=== PATIENT | male | born 1990 | race African-American/Black ===

== ENCOUNTER 2018-05-10 21:56 | Emergency (ER) | payer SELFPAY ==
[2018-05-10] MEDS ORDERED: Sodium Chloride 0.9% 1,000 ML IV ONE (22:37)
[2018-05-10] MEDS ORDERED: Ketorolac 30 MG/ML SDV IVPUSH ONE (22:37)
[2018-05-10 23:16] LABS: CHLORIDE,CL 103 mmol/L (98-107); SODIUM,NA 137 mmol/L (136-148)
--- NOTE | 2018-05-10 23:34 | EDM.PDOC ---
ED HPI GENERAL MEDICAL PROBLEM - General Chief Complaint: General Stated Complaint: PT HAS BODY PAINS Time Seen by Provider: 05/10/18 22:03 Source of Information: Reports: Patient History Limitations: Reports: No Limitations - History of Present Illness INITIAL COMMENTS - FREE TEXT/NARRATIVE: HISTORY AND PHYSICAL: History of present illness: 27-year-old male presenting to emergency department with chief complaint of generalized body aches 2 weeks. Patient states for the last 2 weeks he has had intermittent episodes of generalized body aches more specifically in his joints. States that this has happened before. Does admit to family history of rheumatologic disease. Denies any associated fever, chills, nausea, vomiting, diarrhea, abdominal pain, or other signs of systemic infection. Currently pain is 8 out of 10 and generalized in his joints. Patient is otherwise healthy and takes no other medications on a daily basis. Currently denies any chest pain, palpitations, shortness of breath, syncopal episodes, focal neurologic deficits. Exam completely benign Review of systems: As per history of present illness and below otherwise all systems reviewed and negative. Past medical history: As per history of present illness and as reviewed below otherwise noncontributory. Surgical history: As per history of present illness and as reviewed below otherwise noncontributory. Social history: No reported history of drug or alcohol abuse. Family history: As per history of present illness and as reviewed below otherwise noncontributory. Physical exam: HEENT: Atraumatic, normocephalic, pupils reactive, negative for conjunctival pallor or scleral icterus, mucous membranes moist, throat clear, neck supple, nontender, trachea midline. Lungs: Clear to auscultation, breath sounds equal bilaterally, chest nontender. Heart: S1S2, regular, negative for clicks, rubs, or JVD. Abdomen: Soft, nondistended, nontender. Negative for masses or hepatosplenomegaly. Negative for costovertebral tenderness. Pelvis: Stable nontender. Genitourinary: Deferred. Rectal: Deferred. Extremities: Atraumatic, negative for cords or calf pain. Neurovascular unremarkable. Neuro: Awake, alert, oriented. Cranial nerves II through XII unremarkable. Cerebellum unremarkable. Motor and sensory unremarkable throughout. Exam nonfocal. Diagnostics: CBC, CMP Therapeutics: 1 L normal saline, Toradol 30 mg IV 1, diclofenac 35 mg by mouth 3 times a day #12 Impression: Generalized joint pain Possible rheumatologic disease Plan: Given patient's family history a thorough rheumatologic workup should be done at some point. I did discuss this with the patient at length. Advised him to follow-up with a primary care provider and gave him information on this. I did give him a prescription for diclofenac 35 mg by mouth 3 times a day when necessary pain. Instructed him to return to emergency department if any new or worsened symptoms. Definitive disposition and diagnosis as appropriate pending reevaluation and review of above. generalized Pain Score (Numeric/FACES): 7 - Related Data Allergies Allergy/AdvReac Type Severity Reaction Status Date / Time shellfish derived Allergy Swelling Verified 05/10/18 22:16 Home Meds: Home Meds . [No Known Home Meds] 01/14/16 [History] Past Medical History - Past Health History Medical/Surgical History: Denies Medical/Surgical History HEENT History: Reports: None Cardiovascular History: Reports: None Respiratory History: Reports: None Gastrointestinal History: Reports: None Genitourinary History: Reports: None Musculoskeletal History: Reports: None Neurological History: Reports: None Psychiatric History: Reports: Anxiety Endocrine/Metabolic History: Reports: None Hematologic History: Reports: None Immunologic History: Reports: None Oncologic (Cancer) History: Reports: None Dermatologic History: Reports: None - Infectious Disease History Infectious Disease History: Reports: None - Past Surgical History Head Surgeries/Procedures: Reports: None Social & Family History - Family History Family Medical History: Noncontributory - Tobacco Use Smoking Status *Q: Never Smoker - Caffeine Use Caffeine Use: Reports: Soda - Recreational Drug Use Recreational Drug Use: Yes Drug Use in Last 12 Months: Yes ED ROS GENERAL - Review of Systems Review Of Systems: ROS reveals no pertinent complaints other than HPI. ED EXAM, GENERAL - Physical Exam Exam: See Below Course - Vital Signs Last Recorded V/S: Last Vital Signs Temp 98.1 F 05/10/18 22:16 Pulse 69 05/10/18 22:16 Resp 18 05/10/18 22:16 BP 133/87 05/10/18 22:16 Pulse Ox 98 05/10/18 22:16 - Orders/Labs/Meds Orders: Active Orders 24 hr Category Date Time Status CULTURE URINE [RM] Stat Lab 05/10/18 23:18 Received Labs: Laboratory Tests 05/10/18 05/10/1805/10/18 Range/Units 22:50 22:50 23:18 WBC 5.72 (4.0-11.0) K/uL RBC 5.30 (4.50-5.90) M/uL Hgb 15.1 (13.0-17.0) g/dL Hct 42.4 (38.0-50.0) % MCV 80.0 (80.0-98.0) fL MCH 28.5 (27.0-32.0) pg MCHC 35.6 (31.0-37.0) g/dL RDW Std Deviation 35.8 (28.0-62.0) fl RDW Coeff of Von 12 (11.0-15.0) % Plt Count 185 (150-400) K/uL MPV 8.60 (7.40-12.00) fL Neut % (Auto) 49.1 (48.0-80.0) % Lymph % (Auto) 39.2 (16.0-40.0) % [place] % (Auto) 8.4 (0.0-15.0) % Eos % (Auto) 3.1 (0.0-7.0) % Baso % (Auto) 0.2 (0.0-1.5) % Neut # (Auto) 2.8 (1.4-5.7) K/uL Lymph # (Auto) 2.2 (0.6-2.4) K/uL [place] # (Auto) 0.5 (0.0-0.8) K/uL Eos # (Auto) 0.2 (0.0-0.7) K/uL Baso # (Auto) 0.0 (0.0-0.1) K/uL Nucleated RBC % 0.0 /100WBC Nucleated RBCs # 0 K/uL Sodium 137 (136-148) mmol/L Potassium 3.6 (3.5-5.1) mmol/L Chloride 103 (98-107) mmol/L Carbon Dioxide 26.1 (21.0-32.0) mmol/L BUN 16 (7.0-18.0) mg/dL Creatinine 1.1 (0.8-1.3) mg/dL Est Cr Clr Drug Dosing 118.32 mL/min Estimated GFR (MDRD) > 60.0 ml/min Glucose 98 (74-106) mg/dL Calcium 8.9 (8.5-10.1) mg/dL Total Bilirubin 0.3 (0.2-1.0) mg/dL AST 21 (15-37) IU/L ALT 35 (14-63) IU/L Alkaline Phosphatase 75 (46-116) U/L Total Protein 6.9 (6.4-8.2) g/dL Albumin 4.0 (3.4-5.0) g/dL Globulin 2.9 (2.0-3.5) g/dL Albumin/Globulin Ratio 1.4 (1.3-2.8) Urine Color YELLOW Urine Appearance CLEAR Urine pH 5.5 (5.0-8.0) Ur Specific [place] 1.020 (1.001-1.035) Urine Protein NEGATIVE (NEGATIVE) mg/dL Urine Glucose (UA) NEGATIVE (NEGATIVE) mg/dL Urine Ketones NEGATIVE (NEGATIVE) mg/dL Urine Occult Blood NEGATIVE (NEGATIVE) Urine Nitrite NEGATIVE (NEGATIVE) Urine Bilirubin NEGATIVE (NEGATIVE) Urine Urobilinogen 0.2 (<2.0) EU/dL Ur Leukocyte Esterase NEGATIVE (NEGATIVE) Urine RBC NONE SEEN (0-2/HPF) Urine WBC 0-1 (0-5/HPF) Ur Epithelial Cells RARE (NONE-FEW) Urine Bacteria RARE (NEGATIVE) Urine Mucus LIGHT (NONE-MOD) Meds: Medications Discontinued Medications Generic Name Dose Route Start Last Admin Trade Name Freq PRN Reason Stop Dose Admin Sodium Chloride 1,000 mls @ 999 mls/hr 05/10/18 22:37 05/10/18 22:53 Normal Saline IV 05/10/18 23:37 999 mls/hr STAT ONE Administration Ketorolac Tromethamine 30 mg 05/10/18 22:37 05/10/18 22:53 Toradol IVPUSH 05/10/18 22:38 30 mg ONETIME ONE Administration Departure - Departure Time of Disposition: 23:52 Disposition: Home, Self-Care 01 Condition: Good Clinical Impression: Joint pain Qualifiers: Joint pain location: unspecified Qualified Code(s): M25.50 - Pain in unspecified joint - Discharge Information Referrals: PCP,None [Primary Care Provider] - Forms: ED Department Discharge Additional Instructions: My general discharge The following information is given to patients seen in the emergency department who are being discharged to home. This information is to outline your options for follow-up care. We provide all patients seen in our emergency department with a follow-up referral. The need for follow-up, as well as the timing and circumstances, are variable depending upon the specifics of your emergency department visit. If you don't have a primary care physician on staff, we will provide you with a referral. We always advise you to contact your personal physician following an emergency department visit to inform them of the circumstance of the visit and for follow-up with them and/or the need for any referrals to a consulting specialist. The emergency department will also refer you to a specialist when appropriate. This referral assures that you have the opportunity for follow-up care with a specialist. All of these measure are taken in an effort to provide you with optimal care, which includes your follow-up. Under all circumstances we always encourage you to contact your private physician who remains a resource for coordinating your care. When calling for follow-up care, please make the office aware that this follow-up is from your recent emergency room visit. If for any reason you are refused follow-up, please contact the [facility] Emergency Department at and asked to speak to the emergency department charge nurse. [facility] [address] [place] [id number] Please call and follow-up with primary care provider as we discussed. Be sure and tell them that you were seen in the emergency department and they wish for you to be seen as soon as possible. Take medication as prescribed. Return to emergency department if any new or worsening symptoms as discussed. - My Orders Last 24 Hours: My Active Orders 05/10/18 23:18 CULTURE URINE [RM] Stat - Assessment/Plan Last 24 Hours: My Active Orders 05/10/18 23:18 CULTURE URINE [RM] Stat
[2018-05-10 23:48] VITALS: BP 106/69
== END 2018-05-11 | disposition home or self-care (01) ==
LOC: MW.ED 21:56
DX: M25.50 Pain in unspecified joint (principal); Z91.013 Allergy to seafood
CPT/HCPCS: 36415; 80053; 81001; 85025; 87086; 96361; 96374; 99284; J1885; J7040

== ENCOUNTER 2018-09-30 02:39 | Emergency (ER) | payer SELFPAY ==
[2018-09-30] MEDS ORDERED: Albuterol/Ipratropium 3.0-0.5 MG/3 ML Neb Soln NEB ONE (02:45)
[2018-09-30] MEDS ORDERED: methylPREDNISolone Sodium Succinate 125 MG/2 ML SDV IM ONE (02:45)
--- NOTE | 2018-09-30 02:46 | EDM.PDOC ---
ED HPI GENERAL MEDICAL PROBLEM - General Chief Complaint: Respiratory Problem Stated Complaint: SOB Time Seen by Provider: 09/30/18 02:46 Source of Information: Reports: Patient - History of Present Illness INITIAL COMMENTS - FREE TEXT/NARRATIVE: HISTORY AND PHYSICAL: History of present illness: [Patient with asthma presents with shortness of breath or wheeze Skin no distress as decreased breath sounds bilaterally on arrival did provide DuoNeb and Solu-Medrol with some improvement repeated albuterol lungs are clear at this time patient has been smoking marijuana routinely otherwise is not required medications for his asthma over the last year Fever nausea vomiting chills sweats ] Review of systems: As per history of present illness and below otherwise all systems reviewed and negative. Past medical history: As per history of present illness and as reviewed below otherwise noncontributory. Surgical history: As per history of present illness and as reviewed below otherwise noncontributory. Social history: No reported history of drug or alcohol abuse. Family history: As per history of present illness and as reviewed below otherwise noncontributory. Physical exam: HEENT: Atraumatic, normocephalic, pupils reactive, negative for conjunctival pallor or scleral icterus, mucous membranes moist, throat clear, neck supple, nontender, trachea midline. Lungs: Clear to auscultation, breath sounds equal bilaterally, chest nontender. Post treatment Heart: S1S2, regular, negative for clicks, rubs, or JVD. Abdomen: Soft, nondistended, nontender. Negative for masses or hepatosplenomegaly. Negative for costovertebral tenderness. Pelvis: Stable nontender. Genitourinary: Deferred. Rectal: Deferred. Extremities: Atraumatic, negative for cords or calf pain. Neurovascular unremarkable. Neuro: Awake, alert, oriented. Cranial nerves II through XII unremarkable. Cerebellum unremarkable. Motor and sensory unremarkable throughout. Exam nonfocal. Diagnostics: [Influenza Chest 1 view ] Therapeutics: [DuoNeb Albuterol neb Solu-Medrol 125 mg IM hfa Medrol Dosepak Impression: [ asthma exacerbation ] Definitive disposition and diagnosis as appropriate pending reevaluation and review of above. - Related Data Allergies Allergy/AdvReac Type Severity Reaction Status Date / Time shellfish derived Allergy Swelling Verified 09/30/18 02:46 Home Meds: Home Meds . [No Known Home Meds] 01/14/16 [History] Past Medical History - Past Health History Medical/Surgical History: Denies Medical/Surgical History HEENT History: Reports: None Cardiovascular History: Reports: None Respiratory History: Reports: None Gastrointestinal History: Reports: None Genitourinary History: Reports: None Musculoskeletal History: Reports: None Neurological History: Reports: None Psychiatric History: Reports: Anxiety Endocrine/Metabolic History: Reports: None Hematologic History: Reports: None Immunologic History: Reports: None Oncologic (Cancer) History: Reports: None Dermatologic History: Reports: None - Infectious Disease History Infectious Disease History: Reports: None - Past Surgical History Head Surgeries/Procedures: Reports: None Social & Family History - Family History Family Medical History: Noncontributory - Caffeine Use Caffeine Use: Reports: Soda ED ROS GENERAL - Review of Systems Review Of Systems: See Below ED EXAM, GENERAL - Physical Exam Exam: See Below Course - Vital Signs Last Recorded V/S: Last Vital Signs Temp 97 F 09/30/18 02:39 Pulse 91 09/30/18 02:39 Resp 18 09/30/18 02:39 BP 137/85 09/30/18 02:39 Pulse Ox 97 09/30/18 02:39 - Orders/Labs/Meds Orders: Active Orders 24 hr Category Date Time Status RT Aerosol Therapy [RC] ASDIRECTED Care 09/30/18 02:45 Active RT Aerosol Therapy [RC] ASDIRECTED Care 09/30/18 03:12 Active Meds: Medications Discontinued Medications Generic Name Dose Route Start Last Admin Trade Name Freq PRN Reason Stop Dose Admin Albuterol 2.5 mg 09/30/18 03:12 09/30/18 03:38 Proventil Neb Soln NEB 09/30/18 03:13 2.5 mg ONETIME ONE Administration Albuterol/Ipratropium 3 ml 09/30/18 02:45 09/30/18 02:59 Duoneb 3.0-0.5 Mg/3 Ml NEB 09/30/18 02:46 3 ml ONETIME ONE Administration Methylprednisolone Sodium Succinate 125 mg 09/30/18 02:45 09/30/18 02:59 Solu-Medrol IM 09/30/18 02:46 125 mg ONETIME ONE Administration Departure - Departure Time of Disposition: 04:02 Disposition: Home, Self-Care 01 Condition: Good Clinical Impression: Asthma exacerbation - Discharge Information Forms: ED Department Discharge Additional Instructions: The following information is given to patients seen in the emergency department who are being discharged to home. This information is to outline your options for follow-up care. We provide all patients seen in our emergency department with a follow-up referral. The need for follow-up, as well as the timing and circumstances, are variable depending upon the specifics of your emergency department visit. If you don't have a primary care physician on staff, we will provide you with a referral. We always advise you to contact your personal physician following an emergency department visit to inform them of the circumstance of the visit and for follow-up with them and/or the need for any referrals to a consulting specialist. The emergency department will also refer you to a specialist when appropriate. This referral assures that you have the opportunity for follow-up care with a specialist. All of these measure are taken in an effort to provide you with optimal care, which includes your follow-up. Under all circumstances we always encourage you to contact your private physician who remains a resource for coordinating your care. When calling for follow-up care, please make the office aware that this follow-up is from your recent emergency room visit. If for any reason you are refused follow-up, please contact the [facility] emergency department at and asked to speak to the emergency department charge nurse. - My Orders Last 24 Hours: My Active Orders 09/30/18 02:45 RT Aerosol Therapy [RC] ASDIRECTED 09/30/18 03:12 RT Aerosol Therapy [RC] ASDIRECTED - Assessment/Plan Last 24 Hours: My Active Orders 09/30/18 02:45 RT Aerosol Therapy [RC] ASDIRECTED 09/30/18 03:12 RT Aerosol Therapy [RC] ASDIRECTED
[2018-09-30] MEDS ORDERED: Albuterol 0.083% 2.5 MG/3 ML Neb Soln NEB ONE (03:12)
--- NOTE | 2018-09-30 03:13 | CR ---
INDICATION: chest pain, shortness of breath TECHNIQUE: Chest radiograph 1 view on 2 films COMPARISON: 12/21/15 FINDINGS: Mediastinum: The mediastinum is normal in appearance. The heart silhouette is normal in size and morphology. Lung: Both lungs are unremarkable in appearance. No sign of pleural effusion seen. No pneumothorax is identified. Musculoskeletal: Unremarkable for age. IMPRESSION: 1. No acute cardiopulmonary disease is seen. Dictated by: John Wilson MD @ 09/30/2018 03:11:01 (Electronically Signed)
[2018-09-30 04:18] VITALS: BP 134/77
== END 2018-09-30 04:15 | disposition home or self-care (01) ==
LOC: MW.ED 02:39
DX: J45.901 Unspecified asthma with (acute) exacerbation (principal); Z91.013 Allergy to seafood
CPT/HCPCS: 71045; 87804; 94640; 96372; 99285; J2930; J7620-GY

== ENCOUNTER 2018-10-11 15:32 | Emergency (ER) | payer SELFPAY ==
[2018-10-11] MEDS ORDERED: Sodium Chloride 0.9% 1,000 ML IV ONE (15:58)
[2018-10-11] MEDS ORDERED: Ondansetron 4 MG/2 ML SDV IVPUSH ONE (15:58)
--- NOTE | 2018-10-11 15:59 | EDM.PDOC ---
ED HPI GENERAL MEDICAL PROBLEM - General Chief Complaint: Gastrointestinal Problem Stated Complaint: FLU Time Seen by Provider: 10/11/18 15:59 Source of Information: Reports: Patient - History of Present Illness INITIAL COMMENTS - FREE TEXT/NARRATIVE: HISTORY AND PHYSICAL: History of present illness: [Acute onset subjective fever nausea has vomited a couple times with multiple stools symptoms began earlier today he complains of general myalgias as well as general malaise mild sore throat No chest pain shortness breath headache dizziness palpitation urine symptoms ] Review of systems: As per history of present illness and below otherwise all systems reviewed and negative. Past medical history: As per history of present illness and as reviewed below otherwise noncontributory. Surgical history: As per history of present illness and as reviewed below otherwise noncontributory. Social history: No reported history of drug or alcohol abuse. Family history: As per history of present illness and as reviewed below otherwise noncontributory. Physical exam: HEENT: Atraumatic, normocephalic, pupils reactive, negative for conjunctival pallor or scleral icterus, mucous membranes moist, throat clear, neck supple, nontender, trachea midline. Prior mild erythema no exudates Lungs: Clear to auscultation, breath sounds equal bilaterally, chest nontender. Heart: S1S2, regular, negative for clicks, rubs, or JVD. Abdomen: Soft, nondistended, nontender. Negative for masses or hepatosplenomegaly. Negative for costovertebral tenderness. Pelvis: Stable nontender. Genitourinary: Deferred. Rectal: Deferred. Extremities: Atraumatic, negative for cords or calf pain. Neurovascular unremarkable. Neuro: Awake, alert, oriented. Cranial nerves II through XII unremarkable. Cerebellum unremarkable. Motor and sensory unremarkable throughout. Exam nonfocal. Diagnostics: [CC CMP UA influenza strep ] Therapeutics: [ normal saline bolus Zofran Zofran Amoxicillin ] Impression: [ strep Pharyngitis Gastroenteritis] Definitive disposition and diagnosis as appropriate pending reevaluation and review of above. Generalized Pain Score (Numeric/FACES): 8 - Related Data Allergies Allergy/AdvReac Type Severity Reaction Status Date / Time shellfish derived Allergy Swelling Verified 10/11/18 15:57 Home Meds: Home Meds . [No Known Home Meds] 01/14/16 [History] Past Medical History - Past Health History Medical/Surgical History: Denies Medical/Surgical History HEENT History: Reports: None Cardiovascular History: Reports: None Respiratory History: Reports: None Gastrointestinal History: Reports: None Genitourinary History: Reports: None Musculoskeletal History: Reports: None Neurological History: Reports: None Psychiatric History: Reports: Anxiety Endocrine/Metabolic History: Reports: None Hematologic History: Reports: None Immunologic History: Reports: None Oncologic (Cancer) History: Reports: None Dermatologic History: Reports: None - Infectious Disease History Infectious Disease History: Reports: None - Past Surgical History Head Surgeries/Procedures: Reports: None Social & Family History - Family History Family Medical History: Noncontributory - Caffeine Use Caffeine Use: Reports: Soda ED ROS GENERAL - Review of Systems Review Of Systems: See Below ED EXAM, GENERAL - Physical Exam Exam: See Below Course - Vital Signs Last Recorded V/S: Last Vital Signs Temp 99.9 F 10/11/18 15:59 Pulse 99 10/11/18 15:59 Resp 16 10/11/18 15:59 BP 137/88 10/11/18 15:59 Pulse Ox 97 10/11/18 15:59 - Orders/Labs/Meds Orders: Active Orders 24 hr Category Date Time Status COMPREHENSIVE METABOLIC PN,CMP [CHEM] Stat Lab 10/11/18 16:12 Received UA RFX SHEEBA AND CULT IF INDIC [URIN] Stat Lab 10/11/18 15:58 Ordered cefTRIAXone [Rocephin in Dextrose,Iso-Osm 1 GM/50 ML] 1 Med 10/11/18 16:56 Active gm Premix Bag 1 bag IV ONETIME Medication Orders Ceftriaxone Sodium/Dextrose 1 (gm/ Premix) 50 mls @ 100 mls/hr IV ONETIME ONE Stop: 10/11/18 17:25 Labs: Laboratory Tests 10/11/18 Range/Units 16:12 WBC 10.01 (4.0-11.0) K/uL RBC 5.72 (4.50-5.90) M/uL Hgb 16.6 (13.0-17.0) g/dL Hct 46.5 (38.0-50.0) % MCV 81.3 (80.0-98.0) fL MCH 29.0 (27.0-32.0) pg MCHC 35.7 (31.0-37.0) g/dL RDW Std Deviation 38.1 (28.0-62.0) fl RDW Coeff of [place] 13 (11.0-15.0) % Plt Count 187 (150-400) K/uL MPV 8.60 (7.40-12.00) fL Neut % (Auto) 90.5 H (48.0-80.0) % Lymph % (Auto) 1.9 L (16.0-40.0) % [place] % (Auto) 6.9 (0.0-15.0) % Eos % (Auto) 0.7 (0.0-7.0) % Baso % (Auto) 0.0 (0.0-1.5) % Neut # (Auto) 9.1 H (1.4-5.7) K/uL Lymph # (Auto) 0.2 L (0.6-2.4) K/uL [place] # (Auto) 0.7 (0.0-0.8) K/uL Eos # (Auto) 0.1 (0.0-0.7) K/uL Baso # (Auto) 0.0 (0.0-0.1) K/uL Nucleated RBC % 0.0 /100WBC Nucleated RBCs # 0 K/uL Meds: Medications Generic Name Dose Route Start Last Admin Trade Name Freq PRN Reason Stop Dose Admin Ceftriaxone Sodium/Dextrose 1 50 mls @ 100 mls/hr 10/11/18 16:56 gm/ Premix IV 10/11/18 17:25 ONETIME ONE Discontinued Medications Generic Name Dose Route Start Last Admin Trade Name Freq PRN Reason Stop Dose Admin Sodium Chloride 1,000 mls @ 999 mls/hr 10/11/18 15:58 10/11/18 16:12 Normal Saline IV 10/11/18 16:58 999 mls/hr STAT ONE Administration Ondansetron HCl 8 mg 10/11/18 15:58 10/11/18 16:12 Zofran IVPUSH 10/11/18 15:59 8 mg ONETIME ONE Administration Departure - Departure Time of Disposition: 17:01 Disposition: Home, Self-Care 01 Condition: Good Clinical Impression: Gastroenteritis, Strep pharyngitis - Discharge Information Referrals: PCP,None [Primary Care Provider] - Forms: ED Department Discharge Additional Instructions: The following information is given to patients seen in the emergency department who are being discharged to home. This information is to outline your options for follow-up care. We provide all patients seen in our emergency department with a follow-up referral. The need for follow-up, as well as the timing and circumstances, are variable depending upon the specifics of your emergency department visit. If you don't have a primary care physician on staff, we will provide you with a referral. We always advise you to contact your personal physician following an emergency department visit to inform them of the circumstance of the visit and for follow-up with them and/or the need for any referrals to a consulting specialist. The emergency department will also refer you to a specialist when appropriate. This referral assures that you have the opportunity for follow-up care with a specialist. All of these measure are taken in an effort to provide you with optimal care, which includes your follow-up. Under all circumstances we always encourage you to contact your private physician who remains a resource for coordinating your care. When calling for follow-up care, please make the office aware that this follow-up is from your recent emergency room visit. If for any reason you are refused follow-up, please contact the [facility] emergency department at and asked to speak to the emergency department charge nurse. - My Orders Last 24 Hours: My Active Orders 10/11/18 15:58 UA RFX SHEEBA AND CULT IF INDIC [URIN] Stat 10/11/18 16:12 COMPREHENSIVE METABOLIC PN,CMP [CHEM] Stat 10/11/18 16:56 cefTRIAXone [Rocephin in Dextrose,Iso-Osm 1 GM/50 ML] 1 gm Premix Bag 1 bag IV ONETIME - Assessment/Plan Last 24 Hours: My Active Orders 10/11/18 15:58 UA RFX SHEEBA AND CULT IF INDIC [URIN] Stat 10/11/18 16:12 COMPREHENSIVE METABOLIC PN,CMP [CHEM] Stat 10/11/18 16:56 cefTRIAXone [Rocephin in Dextrose,Iso-Osm 1 GM/50 ML] 1 gm Premix Bag 1 bag IV ONETIME
[2018-10-11] MEDS ORDERED: cefTRIAXone 1 GM in Premix Bag 1 BAG IV ONE (16:56)
[2018-10-11 17:07] LABS: CHLORIDE,CL 104 mmol/L (98-107); SODIUM,NA 136 mmol/L (136-148)
[2018-10-11 17:48] VITALS: BP 127/67
== END 2018-10-11 17:48 | disposition home or self-care (01) ==
LOC: MW.ED 15:32
DX: K52.9 Noninfective gastroenteritis and colitis, unspecified (principal); J02.0 Streptococcal pharyngitis; Z91.013 Allergy to seafood
CPT/HCPCS: 36415; 80053; 85025; 87804; 87880; 96361; 96365; 96375; 99283; J0696; J2405; J7040; 99282

== ENCOUNTER 2019-08-30 21:49 | Emergency (ER) | payer SELFPAY ==
[2019-08-30 22:08] VITALS: BP 131/78; PULSE 60
--- NOTE | 2019-08-30 22:22 | EDM.PDOC ---
ED HPI GENERAL MEDICAL PROBLEM - General Chief Complaint: Genitourinary Problem Stated Complaint: GROIN PAIN Time Seen by Provider: 08/30/19 22:18 Source of Information: Reports: Patient - History of Present Illness INITIAL COMMENTS - FREE TEXT/NARRATIVE: The patient presents to the ER for 1 month of dysuria. No fevers or chills, no purulent discharge, no abdominal pain, no rash, no other acute complaints. He is not sure why he decided to come in tonight after 1 month of dysuria, he just figured it is time to get checked out. He has had chlamydia in the past. Penis Pain Score (Numeric/FACES): 7 - Related Data Allergies Allergy/AdvReac Type Severity Reaction Status Date / Time shellfish derived Allergy Swelling Verified 08/30/19 22:08 Home Meds: Home Meds . [No Known Home Meds] 01/14/16 [History] Past Medical History - Past Health History Medical/Surgical History: Denies Medical/Surgical History HEENT History: Reports: None Cardiovascular History: Reports: None Respiratory History: Reports: None Gastrointestinal History: Reports: None Genitourinary History: Reports: STD Musculoskeletal History: Reports: None Neurological History: Reports: None Psychiatric History: Reports: None Endocrine/Metabolic History: Reports: None Hematologic History: Reports: None Immunologic History: Reports: None Oncologic (Cancer) History: Reports: None Dermatologic History: Reports: None - Infectious Disease History Infectious Disease History: Reports: Chicken Pox - Past Surgical History Head Surgeries/Procedures: Reports: None Social & Family History - Family History Family Medical History: Noncontributory - Tobacco Use Smoking Status *Q: Current Every Day Smoker Years of Tobacco use: 10 Packs/Tins Daily: 0.3 - Caffeine Use Caffeine Use: Reports: Soda - Recreational Drug Use Recreational Drug Use: No ED ROS GENERAL - Review of Systems Review Of Systems: See Below Free Text/Narrative/Comment: Positive for dysuria, negative for urinary frequency, negative for urinary urgency, negative for purulent discharge, negative for testicular pain, negative abdominal pain, negative for back pain, negative for fevers, negative for rash, all other Positives and pertinent negatives as per HPI. All other pertinent systems were reviewed and are negative ED EXAM, RENAL/ - Physical Exam Exam: See Below Text/Narrative:: Constitutional: No acute distress, Non-toxic appearance. HEENT: Normocephalic, Atraumatic, EOMI Neck: Normal range of motion, No stridor, trachea midline Respiratory: No respiratory distress, No tachypnea Cardiovascular: Deferred Gastrointestinal: Deferred Genital / Urinary: Deferred Musculoskeletal: All four extremities present and atraumatic Back: FROM Integument: Warm, Dry, Color is ethnicity appropriate, No rash. Neuro: Alert, Awake, No focal deficits noted Psych: Affect, Judgement, mood normal Course - Vital Signs Text/Narrative:: The urinalysis is negative but the GC and chlamydia at this facility takes 3 to 5 days to come back. I let the patient know that the hospital will contact him if it is positive but not if it is negative so he needs to abstain from any sexual activity for the next week. He will also be given follow-up, and he needs to get a more comprehensive STD exam that we can perform in this ER. Last Recorded V/S: Last Vital Signs Temp 36.1 C 08/30/19 22:05 Pulse 60 08/30/19 22:05 Resp 18 08/30/19 22:05 BP 131/78 08/30/19 22:05 Pulse Ox 96 08/30/19 22:05 - Orders/Labs/Meds Orders: Active Orders 24 hr Category Date Time Status CHLAMYDIA AND GONORRHEA BY TMA Stat Lab 08/30/19 22:05 Received UA RFX SHEEBA AND CULT IF INDIC [URIN] Stat Lab 08/30/19 22:05 Received Departure - Departure Time of Disposition: 22:30 Disposition: Home, Self-Care 01 Clinical Impression: Dysuria - Discharge Information Instructions: Sexually Transmitted Disease, [id number] Referrals: PCP,None [Primary Care Provider] - Forms: ED Department Discharge Additional Instructions: The following information is given to patients seen in the emergency department who are being discharged to home. This information is to outline your options for follow-up care. We provide all patients seen in our emergency department with a follow-up referral. The need for follow-up, as well as the timing and circumstances, are variable depending upon the specifics of your emergency department visit. If you don't have a primary care physician on staff, we will provide you with a referral. We always advise you to contact your personal physician following an emergency department visit to inform them of the circumstance of the visit and for follow-up with them and/or the need for any referrals to a consulting specialist. The emergency department will also refer you to a specialist when appropriate. This referral assures that you have the opportunity for follow-up care with a specialist. All of these measure are taken in an effort to provide you with optimal care, which includes your follow-up. Under all circumstances we always encourage you to contact your private physician who remains a resource for coordinating your care. When calling for follow-up care, please make the office aware that this follow-up is from your recent emergency room visit. If for any reason you are refused follow-up, please contact the [facility] Emergency Department at and asked to speak to the emergency department charge nurse. Sepsis Event Note - Evaluation Sepsis Screening Result: No Definite Risk - Focused Exam Vital Signs: Vital Signs Temp Pulse Resp BP Pulse Ox 08/30/19 22:05 36.1 C 60 18 131/78 96 Date Exam was Performed: 08/30/19 Time Exam was Performed: 22:22 - My Orders Last 24 Hours: My Active Orders 08/30/19 22:05 CHLAMYDIA AND GONORRHEA BY TMA Stat UA RFX SHEEBA AND CULT IF INDIC [URIN] Stat - Assessment/Plan Last 24 Hours: My Active Orders 08/30/19 22:05 CHLAMYDIA AND GONORRHEA BY TMA Stat UA RFX SHEEBA AND CULT IF INDIC [URIN] Stat
== END 2019-08-30 22:40 | disposition home or self-care (01) ==
LOC: MW.ED 21:49
DX: R30.0 Dysuria (principal); F17.210 Nicotine dependence, cigarettes, uncomplicated; Z91.013 Allergy to seafood
CPT/HCPCS: 81003; 87491; 87591; 99282; 99283

== ENCOUNTER 2020-11-24 06:07 | Emergency (ER) | payer MEDICAID, OTHER ==
--- NOTE | 2020-11-24 06:30 | EDM.PDOC ---
<Arley Kim - Last Filed: 11/24/20 06:26> ED HPI GENERAL MEDICAL PROBLEM - General Chief Complaint: Respiratory Problem Stated Complaint: BRONCHITIS-LIKE SYMPTOMS Time Seen by Provider: 11/24/20 06:21 Source of Information: Reports: Patient History Limitations: Reports: No Limitations - History of Present Illness INITIAL COMMENTS - FREE TEXT/NARRATIVE: 30-year-old male presents with shortness of breath and dry cough for 3 days, associated with congestion. He denies fever, sore throat, chills, myalgia, generalized malaise. He smokes cigarettes. ROS: A 10-point review of systems, other than pertinent positives and negatives as stated per HPI, is otherwise negative Past medical history: No additional pertinent history Past Surgical history: No additional pertinent history Social history: No additional pertinent history Family history: No additional pertinent history PHYSICAL EXAM General: AOx4, GCS = 15, No distress HEENT: dry mucous membrane, mild erythema posterior oropharynx, no stridor Neck: supple, no meningismus, no Kernig or Brudzinski Cardiac: S1S2 RRR Respiratory: CTAB, no crackles or rales, no wheezing Abdomen: Soft, nontender, no rebound or guarding, nondistended, no pulsatile mass. Back: nontender Musculoskeletal: NVI distally, no deformity Neuro: No focal deficits - Related Data Allergies Allergy/AdvReac Type Severity Reaction Status Date / Time shellfish derived Allergy Swelling Verified 11/24/20 06:21 Home Meds: Home Meds . [No Known Home Meds] 01/14/16 [History] Past Medical History - Past Health History Medical/Surgical History: Denies Medical/Surgical History HEENT History: Reports: None Cardiovascular History: Reports: None Respiratory History: Reports: None Gastrointestinal History: Reports: None Genitourinary History: Reports: STD Musculoskeletal History: Reports: None Neurological History: Reports: None Psychiatric History: Reports: None Endocrine/Metabolic History: Reports: None Hematologic History: Reports: None Immunologic History: Reports: None Oncologic (Cancer) History: Reports: None Dermatologic History: Reports: None - Infectious Disease History Infectious Disease History: Reports: Chicken Pox - Past Surgical History Head Surgeries/Procedures: Reports: None Social & Family History - Family History Family Medical History: No Pertinent Family History - Tobacco Use Packs/Tins Daily: 0.5 - Caffeine Use Caffeine Use: Reports: None - Recreational Drug Use Recreational Drug Use: No ED ROS GENERAL - Review of Systems Review Of Systems: See Below (see dictation) ED EXAM, GENERAL - Physical Exam Exam: See Below (see dictation) Course - Re-Assessments/Exams Free Text/Narrative Re-Assessment/Exam: 11/24/20 06:59 Case signed out to Dr. Russell for ultimate disposition Departure - Departure Disposition: Home, Self-Care 01 Clinical Impression: Viral illness - Discharge Information Instructions: Viral Illness, Adult Referrals: PCP,None [Primary Care Provider] - Forms: ED Department Discharge Additional Instructions: The following information is given to patients seen in the emergency department who are being discharged to home. This information is to outline your options for follow-up care. We provide all patients seen in our emergency department with a follow-up referral. The need for follow-up, as well as the timing and circumstances, are variable depending upon the specifics of your emergency department visit. If you don't have a primary care physician on staff, we will provide you with a referral. We always advise you to contact your personal physician following an emergency department visit to inform them of the circumstance of the visit and for follow-up with them and/or the need for any referrals to a consulting specialist. The emergency department will also refer you to a specialist when appropriate. This referral assures that you have the opportunity for follow-up care with a specialist. All of these measure are taken in an effort to provide you with optimal care, which includes your follow-up. Under all circumstances we always encourage you to contact your private physician who remains a resource for coordinating your care. When calling for follow-up care, please make the office aware that this follow-up is from your recent emergency room visit. If for any reason you are refused follow-up, please contact the [facility] Emergency Department at and asked to speak to the emergency department charge nurse. Please follow up with your primary care physician. If you do not have a primary care physician, see below: [facility] [address] [place] [address] My [facility] [address] [place] [address] You were seen for cough and sore throat we did a Covid test and strep test that came back negative. You likely have viral illness we recommend that you follow with your primary care physician Sepsis Event Note (ED) - Evaluation Sepsis Screening Result: No Definite Risk <Sachin Russell - Last Filed: 11/24/20 07:55> Course - Vital Signs Last Recorded V/S: Last Vital Signs Temp 97 F 11/24/20 06:19 Pulse 81 11/24/20 06:19 Resp 16 11/24/20 06:19 BP 131/95 H 11/24/20 06:19 Pulse Ox 95 11/24/20 06:19 - Orders/Labs/Meds Labs: Laboratory Tests 11/24/20 11/24/20 Range/Units 06:20 06:25 Influenza Type A RNA NEGATIVE (NEGATIVE) Influenza Type B RNA NEGATIVE (NEGATIVE) SARS-CoV-2 RNA (SANKET) NEGATIVE (NEGATIVE) Group A Strep (PCR) NOT DETECTED (NOT DETECT) Departure - Departure Time of Disposition: 07:53 Condition: Good - Discharge Information *PRESCRIPTION DRUG MONITORING PROGRAM REVIEWED*: Not Applicable *COPY OF PRESCRIPTION DRUG MONITORING REPORT IN PATIENT MARIA D: Not Applicable Sepsis Event Note (ED) - Focused Exam Vital Signs: Vital Signs Temp Pulse Resp BP Pulse Ox 11/24/20 06:19 97 F 81 16 131/95 H 95
[2020-11-24 07:11] LABS: CORONAVIRUS COVID-19 NAA NEGATIVE (NEGATIVE); INFLUENZA A NAA NEGATIVE (NEGATIVE); INFLUENZA B NAA NEGATIVE (NEGATIVE)
--- NOTE | 2020-11-24 07:17 | CR ---
INDICATION: Chest pain TECHNIQUE: Chest 1 views COMPARISON: 09/30/2018 FINDINGS: Cardiovascular and mediastinum: Heart size and vasculature are normal in caliber and appearance. Lungs and pleural spaces: Lungs are clear. No sign of infiltrate or mass. No sign of pleural effusion. No pneumothorax. Bones and soft tissues: No significant findings. IMPRESSION: No acute findings and no significant changes from the prior exam. Dictated by Tony Tran MD @ Nov 24 2020 7:09AM Signed by Dr. Tony Tran @ Nov 24 2020 7:15AM
[2020-11-24 08:05] VITALS: BP 140/80; PULSE 80
== END 2020-11-24 08:06 | disposition home or self-care (01) ==
LOC: MW.ED 06:07
DX: B34.9 Viral infection, unspecified (principal); F17.210 Nicotine dependence, cigarettes, uncomplicated; Z91.013 Allergy to seafood; Z20.822 Contact with and (suspected) exposure to COVID-19
CPT/HCPCS: 0240U; 71045; 87651; 99283; 99282

== ENCOUNTER 2023-05-21 01:36 | Emergency (ER) | payer MEDICAID ==
[2023-05-21 01:47] VITALS: BP 139/71; PULSE 77
[2023-05-21] MEDS ORDERED: Aspirin 81 MG Tab.Chew PO ONE (01:47)
[2023-05-21 02:48] LABS: A/G RATIO 1.3 (0.9-1.6); ALBUMIN 3.9 g/dL (3.4-5.0); BILIRUBIN TOTAL 0.5 mg/dL (0.2-1.0); CALCIUM 8.6 mg/dL (8.5-10.1); CREATININE 1.1 mg/dL (0.8-1.3); EST CRCL DRUG DOSING (CG) 113.13 mL/min; PROTEIN TOTAL,TP 6.9 g/dL (6.4-8.2)
[2023-05-21 04:02] LABS: A/G RATIO 1.3 (0.9-1.6); ALBUMIN 3.9 g/dL (3.4-5.0); BILIRUBIN TOTAL 0.5 mg/dL (0.2-1.0); CALCIUM 8.6 mg/dL (8.5-10.1); CARBON DIOXIDE,CO2 23.9 mmol/L (21.0-32.0); EST CRCL DRUG DOSING (CG) 124.44 mL/min; POTASSIUM,K 3.5 mmol/L (3.5-5.1)
== END 2023-05-21 03:55 | disposition left against medical advice (07) ==
LOC: MW.ED 01:36
DX: R07.81 Pleurodynia (principal); Z91.013 Allergy to seafood
CPT/HCPCS: 36415; 71045; 80053; 84484; 93005; 99285; A9270; 93010; 99283

== ENCOUNTER 2024-04-12 13:31 | Emergency (ER) | payer SELFPAY ==
[2024-04-12] MEDS: traMADol 50 MG Tab PO STA (14:02)
[2024-04-12] MEDS: Benzocaine 20% Topical Spray UD MUCMEM STA (14:02)
[2024-04-12] MEDS: Lidocaine 2% Viscous Solution 15 ML UD PO STA (14:02)
[2024-04-12 14:06] VITALS: BP 143/94; PULSE 86
== END 2024-04-12 14:13 | disposition home or self-care (01) ==
LOC: MW.ED 13:31
DX: K04.7 Periapical abscess without sinus (principal); Z75.8 Other problems related to medical facilities and other health care; Z91.013 Allergy to seafood; Z79.899 Other long term (current) drug therapy
CPT/HCPCS: 99282; A9270; 99283

== ENCOUNTER 2024-07-11 21:51 | Emergency (ER) | payer BC ==
[2024-07-11] MEDS: EPINEPHrine 1 MG/1 ML Amp IM ONE (22:06)
[2024-07-11] MEDS: diphenhydrAMINE 50 MG/ML SDV IVPUSH ONE (22:06)
[2024-07-11] MEDS: Dexamethasone 4 MG/ML SDV IVPUSH ONE (22:06)
[2024-07-11] MEDS: Sodium Chloride 0.9% 1,000 ML IV ONE (22:07)
[2024-07-11] MEDS: Polymyxin B/Trimethoprim 10 ML Bottle EYERT ONE (23:17)
[2024-07-11 23:24] VITALS: BP 124/81; PULSE 77
== END 2024-07-11 23:23 | disposition home or self-care (01) ==
LOC: MW.ED 21:51
DX: T78.2XXA Anaphylactic shock, unspecified, initial encounter (principal); H10.31 Unspecified acute conjunctivitis, right eye; Z91.013 Allergy to seafood; Z79.899 Other long term (current) drug therapy
CPT/HCPCS: 96361; 96372; 96374; 96375; 99284; A9270; J0171; J1100; J1200; J7030

== ENCOUNTER 2025-05-11 09:50 | Emergency (ER) | payer BC ==
[2025-05-11 10:01] VITALS: BP 139/101; PULSE 88
[2025-05-11] MEDS: Lidocaine 2% Viscous Solution 15 ML UD PO ONE (10:42)
[2025-05-11] MEDS: Ketorolac 30 MG/ML SDV IM ONE (10:42)
[2025-05-11] MEDS: Benzocaine 20% Topical Spray UD MUCMEM ONE (10:42)
[2025-05-11] MEDS: Amoxicillin/Clavulanate K 875-125 MG Tab PO ONE (10:42)
== END 2025-05-11 10:55 | disposition home or self-care (01) ==
LOC: MW.ED 09:50
DX: K03.81 Cracked tooth (principal); Z91.013 Allergy to seafood
CPT/HCPCS: 96372; 99282; A9270; J1885; J3490

== ENCOUNTER 2025-06-24 14:49 | Emergency (ER) | payer BC ==
[2025-06-24 15:16] VITALS: BP 148/89; PULSE 87
== END 2025-06-24 15:59 | disposition home or self-care (01) ==
LOC: MW.ED 14:49
DX: K08.89 Other specified disorders of teeth and supporting structures (principal); F17.200 Nicotine dependence, unspecified, uncomplicated; Z75.3 Unavailability and inaccessibility of health-care facilities; Z91.013 Allergy to seafood
CPT/HCPCS: 99282; 99284